=== PATIENT | female | born 1960 | race Caucasian/White ===

== ENCOUNTER 2016-07-30 18:49 | Emergency (ER) | payer MEDICARE, MEDICAID ==
[~2016-07-30] VITALS: Ht 165.1 cm; Wt 91.0 kg
[2016-07-30 18:50] VITALS: BP 158/72; PULSE 70; RESP 20; TEMP 97.9; O2SAT 98
[2016-07-30] MEDS ORDERED: DEXAMETHASONE SOD PHOS 4 MG/ML VIAL IM ONE (19:45)
--- NOTE | 2016-07-30 19:47 | PD ---
HPI Chief Complaint: Pain: Acute or Chronic Time Seen by Provider: 19:42 Travel History International Travel<30 days: No Contact w/Intl Traveler<30days: No Traveled to known affect area: No History of Present Illness HPI Patient comes in complaining of left-sided neck pain that began about 2 and half weeks ago. Patient states that she was unable to get up off for one day and that people help her employer bilateral upper extremities causing the initial pain. Patient believes that may have pulled something when they were trying to lift her. Patient's follow-up with her primary care doctor the next day had x-rays done that were reportedly negative. Patient states she's been taking ibuprofen for this minimal relief of her symptoms. Patient's pain is on left side of her neck lateral aspect without radiation. Patient is pain is a aching sharpness is worse with certain movement of her neck. Patient denies any other known trauma. Patient denies any numbness or tingling, fevers, loss or change in bowel or bladder, new numbness or tingling anywhere, headaches, fevers, chest pain, shortness of breath, or back pain. Patient reports her blood sugars running under 200. [facility] Past Medical History High Cholesterol: Yes Diabetes: Yes (INSULIN DEPENDENT/ACTOS) Hypertension: Yes Social History Alcohol Use: No Tobacco Use: No Substance Use: No Allergies-Medications (Allergen,Severity, Reaction): Coded Allergies: Sulfa (Verified Allergy, Unknown, 07/30/16) Reported Meds & Prescriptions Reported Meds & Active Scripts Active Flexeril (Cyclobenzaprine HCl) 5 Mg Tab 5 Mg PO Q8HR PRN Review of Systems Except as stated in HPI: all other systems reviewed are Neg Physical Exam Narrative GENERAL: Well-developed, overly nourished, in no acute distress, and non-ill appearing. SKIN: Warm and dry. HEAD: Atraumatic. Normocephalic. EYES: Pupils equal and round. EOMI. No scleral icterus. No injection or drainage. ENT: No nasal bleeding or discharge. Mucous membranes pink and moist. NECK: Trachea midline. Supple. No nuclear rigidity. Full range of motion of neck. No tenderness or crepitus or midline cervical spine. Patient reports tenderness to palpation of left sternocleidomastoid muscle. CARDIOVASCULAR: Radial pulses 2+ intact and equal bilaterally. Capillary refill less than 2 seconds. RESPIRATORY: No accessory muscle use. No respiratory distress. MUSCULOSKELETAL: No obvious deformities. No clubbing. No cyanosis. No edema. Full range of motion. Shoulder:FROM equal BL with passive flexion, extension, Abduction, Adduction, internal/external rotation, and pronation/supination. Sensation equal BL deltoid muscles. Pulses equal BL distal to injury. Capillary refill less than 2 seconds distal to injury and equal BL. FROM distal to injury and equal BL. Strength distal to injury equal BL. NV intact distal to injury equal BL. Flexion and extension of thumb equal BL. Equal strength and movement with abduction/adductions of BL fingers. 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 NEUROLOGICAL: Awake and alert. No obvious cranial nerve deficits. Motor grossly within normal limits. Normal speech. PSYCHIATRIC: Appropriate mood and affect; insight and judgment normal. Data Data Last Documented VS Vital Signs Date Time Temp Pulse Resp B/P Pulse Ox O2 Delivery O2 Flow Rate FiO2 07/30/16 18:50 97.9 70 20 158/72 98 Room Air Orders Dexamethasone Inj (Decadron Inj) (07/30/16 19:45) MDM Medical Decision Making Medical Screen Exam Complete: Yes Emergency Medical Condition: Yes Differential Diagnosis Fracture, strain, contusion, other Narrative Course The patient presented complaining of neck pain. There was no history of recent fall or blunt trauma. However, history elicited activity likely causing muscular strain and injury. There was no evidence to support cardiac or cardiopulmonary etiology (atypical angina, PE etc.) . There is also no evidence to suggest vascular pathology such as TAA or carotid dissection. No fevers or other evidence to suspect infectious processes, abscess, osteomyelitis etc. The patients neurological exam is normal with normal motor and sensory. There is no paresthesias or motor deficits reported or found and no bowel or bladder incontinence or retention. I suspect the pain is mechanical in nature. Clinical suspicion, plan of care and management was discussed with the patient. The patient was instructed to follow up with their health care provider. The patient was also instructed to return if the pain worsened, changed, or developed weakness or bowel or bladder trouble. The patient agreed with plan. Patient in no obvious distress upon re-evaluation. Patient was asked if they wanted to speak to my attending, which the patient did not wish to do at this time. Any questions/concerns in reference to patient diagnosis/condition discussed and clarified prior to patient's discharge. Reinforced sheer importance of close follow up with patient's primary physician or primary care clinic. Instructed patient to return to ED immediately, if symptoms return/ worsen. Pt showed understanding of above instructions. Further instructions and recommendations were detailed in discharge paperwork. Pt ambulated without difficulty out of ED at discharge. Diagnosis Primary Impression: Cervical strain, acute Qualified Code: S16.1XXD - Cervical strain, acute, subsequent encounter Referrals: Tahir Ferrer MD Patient Instructions: Cervical Neck Strain Exercises (GEN), Cervical Strain (ED ), General Instructions Additional Instructions: Follow-up with your primary care physician and/or orthopedics in 3-4 days for reevaluation. Take all medication as prescribed. Use [id number] Tylenol and/or ibuprofen as needed for pain. Follow instructions on the packaging. Return to the emergency department if symptoms get worse. Med/Other Pt SpecificInfo: Prescription(s) given Scripts Cyclobenzaprine (Flexeril)5 Mg Tab5 Mg PO Q8HR PRN (MUSCLE PAIN) #12 TAB Ref 0 Prov:Kim Madden MD 07/30/16 Disposition: 01 DISCHARGE HOME Condition: Stable Agusto Ty Jul 30, 2016 19:47
[2016-07-30] MEDS ORDERED: CYCL5TAB PO (19:48)
== END 2016-07-30 20:29 | disposition home or self-care (01) ==
LOC: NEPB 18:49
DX: S16.1XXA Strain of muscle, fascia and tendon at neck level, initial encounter (principal); E11.9 Type 2 diabetes mellitus without complications; X58.XXXA Exposure to other specified factors, initial encounter; Z79.4 Long term (current) use of insulin; Z88.2 Allergy status to sulfonamides
CPT/HCPCS: 96372; 99283; J1100